=== PATIENT | male | born 1990 | race Caucasian/White ===

== ENCOUNTER → 2021-02-14 | Emergency (ER) | payer SELFPAY ==
[~2021-02-14] VITALS: Ht 170.2 cm; Wt 80.0 kg
[~2021-02-14] MED LIST: ALBU8HFA PO; FAMO-128 PO; HYDR-4383 PO; NO HOME MEDS; ONDA4TAB6 PO; PRED20TA PO; ROBDML PO; albuterol 2.5 MG/3 ML nebule NEB ONE; methylPREDNISolone sod succ 125mg/2ml vial IV ONE
[2021-02-14 12:06] LABS: BASOPHILS # (AUTO) 0.1 X10'3 (0-0.2); BASOPHILS % (AUTO) 0.7 % (0-1); EOSINOPHILS # (AUTO) 0.1 X10'3 (0-0.9); HEMATOCRIT 45.4 % (42.0-52.0); HEMOGLOBIN 15.8 g/dl (14.0-17.9); LYMPHOCYTES # (AUTO) 2.8 X10'3 (1.1-4.8); LYMPHOCYTES % (AUTO) 31.4 % (21-51); MEAN CORPUSCULAR HEMOGLOBIN 29.7 PG (27.0-31.0); MEAN CORPUSCULAR HGB CONC 34.8 g/dL (33.0-36.5); MEAN CORPUSCULAR VOLUME 85.2 FL (78-98); MEAN PLATELET VOLUME 9.2 FL (7.4-10.4); MONOCYTES % (AUTO) 10.8 % (2-12); NEUTROPHILS # (AUTO) 5.1 X10'3 (1.8-7.7); NEUTROPHILS % (AUTO) 56.1 % (42-75); PLATELET COUNT 273 X10'3 (140-440); RED BLOOD COUNT 5.32 X10'6 (4.70-6.10); RED CELL DISTRIBUTION WIDTH 12.9 % (11.5-14.5)
--- NOTE | 2021-02-14 12:06 | NUR ---
airborne isolation precautions initiated
[2021-02-14 12:30] LABS: ALANINE AMINOTRANSFERASE 52 U/L (12-78); ALBUMIN 4.3 G/DL (3.4-5.0); ALBUMIN/GLOBULIN RATIO 1.3 (1.1-1.5); ALKALINE PHOSPHATASE 72 IU/L (46-116); ANION GAP 9 (8-16); ASPARTATE AMINO TRANSFERASE 25 U/L (10-37); BILIRUBIN,TOTAL 0.4 MG/DL (0.1-1.0); BLOOD UREA NITROGEN 8 MG/DL (7-18); BUN/CREATININE RATIO 8.5 (5.4-32.0); CALCIUM 8.8 MG/DL (8.5-10.1); CHLORIDE 105 MMOL/L (99-107); CREATININE 0.94 MG/DL (0.60-1.10); GLUCOSE 89 MG/DL (70-104); POTASSIUM 3.7 MMOL/L (3.5-5.1); SODIUM 139 MMOL/L (135-145); TOTAL PROTEIN 7.7 G/DL (6.4-8.2); eGFR > 90 ML/MIN
--- NOTE | 2021-02-14 14:34 | NUR ---
pt states he is feeling much better, "like a different person". sitting on gurney, no distress
--- NOTE | 2021-02-14 14:42 | NUR ---
second breathing tx ordered, awaiting RT
[2021-02-14 15:30] VITALS: BP 142/96
== END | disposition home or self-care (01) ==
LOC: ER 10:59
DX: R06.02 Shortness of breath (principal); Z79.899 Other long term (current) drug therapy; Z20.822 Contact with and (suspected) exposure to COVID-19
CPT/HCPCS: 36415; 71046; 80053; 83605; 83880; 85025; 87040; 87635; 93005; 94640; 96374; 99285; C9803; J2930; 94760